=== PATIENT | female | born 1970 | race Caucasian/White ===

== ENCOUNTER 2019-05-28 08:52 | Day surgery (SDC) | payer OTHER, SELFPAY ==
--- NOTE | 2019-05-27 15:34 | PCM.HP.BLA ---
History and Physical Date of Admission: 05/28/19 Pre-Op History and Physical ? HPI: The patient is a 48 year old female presenting for pre-operative visit. She is scheduled for?laparoscopic bilateral salpingectomy and hysteroscopy with endometrial ablation, for?sterilization and menorrhagia on?05/28/19. ??Procedure discussed along with risks, benefits and complications. ?Other alternatives discussed for management. Consent form signed??Yes.? PAST?MEDICAL?HISTORY PAST MEDICAL HISTORY Diagnosis Date ? Amenorrhea ? ? Dizziness ? ? Fatigue ? ? Heart murmur ? ? Mitral valve disorder ? ? Pain in left shoulder 05/09/2015 ? Pain in right elbow ? ? Palpitations ? ? PACs/PVCs on event recorder ? Pulmonary hypertension (HCC) ? ? Tricuspid valve regurgitation ? ? Ventricular premature beats ? ? ? PAST?SURGICAL?HISTORY PAST SURGICAL HISTORY Procedure Laterality Date ? BREAST SURGERY PROCEDURE UNLISTED ? ? ? Breast Lift ? ELBOW RIGHT OP SURGERY ? 07/2017 ? KNEE RIGHT OP SURGERY ? 05/2017 ? NOSE SURGERY HX ? YRS ? VT ANESTH,BLADDER STONE SURG ? ? ? Bladder sling ? REMOVE/GRAFT FOOT LESION ? ? ? Right Foot Bunyon ? REPAIR OF NASAL SEPTUM ? CURRENT?MEDICATIONS Current Outpatient Medications Medication Sig Dispense Refill ? norethindrone (AYGESTIN) 5 mg tablet Take 1 tablet TID until bleeding stops, the BID x 3 days, the daily x 3 days. 35 tablet 0 ? No current facility-administered medications for this visit.? ? ALLERGIES:?Patient has no known allergies. ? PERSONAL HISTORY:? SOCIAL?HISTORY Social History ??Socioeconomic History ?Marital status: ?Spouse name: Not on file ?Number of children: Not on file ?Years of education: Not on file ?Highest education level: Not on file ??Occupational History ?Occupation: HOUSEWIFE ??Social Needs ?Financial resource strain: Not on file ?Food insecurity: ?Worry: Not on file ?Inability: Not on file ?Transportation needs: ?Medical: Not on file ?Non-medical: Not on file ??Tobacco Use ?Smoking status: Never Smoker ?Smokeless tobacco: Never Used ?Tobacco comment: Never smoked; Tobacco reviewed with patient 06/29/2015 ??Substance and Sexual Activity ?Alcohol use: Yes ?Comment: glass of wine here and there ?Drug use: No ?Comment: No reported history ?Sexual activity: Yes ?Partners: Male ? control/protection: None ??Lifestyle ?Physical activity: ?Days per week: Not on file ?Minutes per session: Not on file ?Stress: Not on file ??Relationships ?Social connections: ?Talks on phone: Not on file ?Gets together: Not on file ?Attends muslim service: Not on file ?Active member of club or organization: Not on file ?Attends meetings of clubs or organizations: Not on file ?Relationship status: Not on file ?Intimate partner violence: ?Fear of current or ex partner: Not on file ?Emotionally abused: Not on file ?Physically abused: Not on file ?Forced sexual activity: Not on file ??Other Topics ?Concerns: ? Service: Not Asked ?Blood Transfusions: Not Asked ?Caffeine Concern: Yes ?Uses caffeine; Type: coffee; Amount: moderate (equiv to 1-3 8oz coffee/day) ?Occupational Exposure: Not Asked ?Hobby Hazards: Not Asked ?Sleep Concern: Not Asked ?Stress Concern: Not Asked ?Weight Concern: Not Asked ?Special Diet: Not Asked ?Back Care: Not Asked ?Exercise: Yes ?Daily ?Bike Helmet: Not Asked ?Seat Belt: Not Asked ?Self-Exams: Not Asked ??Social History Narrative ?Not on file ? FAMILY HISTORY:? FAMILY?HISTORY FAMILY HISTORY Problem Relation Age of Onset ? Arthritis Mother ? ? Hypertension Mother ? ? other (Depression) Mother ? ? Heart Father ? ? other (Hollister Palsy) Father ? ? Cancer Sister ? ? Coronary Artery Disease Other ?Aunt ? Hypertension Sister ? ? Breast Cancer Other ?Hlaf sister ? REVIEW OF SYMPTOMS: GENERAL: denies fevers or chills ENDOCRINOLOGY: has not been on steroids Cardiology : denies palpitations or chest pain Respiratory: denies SOB or cough Hematology: denies history of prolonged bleeding or easy bruising or VTE Allergy: Denies history of personal or family history of allergy to anesthesia ? ? PHYSICAL EXAMINATION: ? VITALS:?There were no vitals taken for this visit. ? GENERAL:??The patient is well nourished, well hydrated in no acute distress. ?, The patient is oriented to time, place, and person. NECK:?Supple. No lynphadenopathy, normal thyroid, no thyromegaly. LUNGS:?Clear to auscultation bilaterally. no wheezes, rhonchi or rales HEART:?Regular rate and rhythm, Normal heart sounds and No murmurs or gallops ? ? IMPRESSION:?menorrhagia, sterilization request ? PLAN:???The risks/benefits/alternatives and personal involved for the planned?laparoscopic bilateral salpingectomy and hysteroscopy with endometrial ablation?were reviewed with the patient. Her questions were answered to her satisfaction and she desires to proceed. ?Consent was signed. ?I reviewed with her postop instructions and expectations. This h&P was completed in my office on 05/26/19 ?
[2019-05-28] VITALS (8 sets, daily range): BP systolic 103–129; BP diastolic 55–83; PULSE 46–62; RESP 16; TEMP 36.1–37; O2SAT 99–100; BMI 24.7
--- NOTE | 2019-05-28 09:14 | EKG12_ITS ---
Test Reason : PRE-OP Blood Pressure : / mmHG Vent. Rate : 059 BPM Atrial Rate : 059 BPM P-R Int : 160 ms QRS Dur : 096 ms QT Int : 406 ms P-R-T Axes : 058 -22 030 degrees QTc Int : 401 ms Sinus bradycardia with Premature atrial complexes Otherwise normal ECG Confirmed by MISTI KAHN, GILBERTO ([id number]), restaurant expeditor AUDREY PEREA ([id number]) on 06/02/2019 9:08:07 AM Referred By: Ani Ojeda Confirmed By:GILBERTO CHAPPELL MD
[2019-05-28 09:27] LABS: Hematocrit 40.2 % (37-47); Hemoglobin 13.7 g/dL (12.0-15.0); Mean Corp Hgb Conc 34.1 g/dL (32-36); Mean Corpuscular Hgb 31.1 pg (27.0-32.0); Mean Corpuscular Volume 91.4 fL (81-99); Mean Platelet Vol. 9.5 fl (6.2-12.0); Platelet Count 218 K/mm3 (150-450); RBC Distribution Width CV 11.8 % (11.6-14.6); RBC Distribution Width SD 39.9 fl (35.1-43.9); White Blood Count 4.5 K/mm3 (4.4-11.0)
[2019-05-28 09:29] LABS: Internal QC Validated? YES +Cl - CLEAR BKGD; Pregnancy, Urine Negative Negative
[2019-05-28] MEDS: Lactated Ringers 1,000 ML 100 ML IV (09:30)
[2019-05-28] MEDS: Gabapentin 300 MG Capsule PO (09:35)
[2019-05-28] MEDS: Celecoxib 200 MG Capsule 400 MG PO (09:35)
[2019-05-28] MEDS: Acetaminophen 500 MG Tablet 1000 MG PO (09:35)
[2019-05-28 09:44] LABS: Anion Gap 7 (5-15); BUN 10 mg/dL (7-18); Calcium,Total 8.9 mg/dL (8.5-10.1); Chloride 106 mmol/L (98-107); Creatinine, Serum 0.77 mg/dL (0.55-1.02); EST Glomerular Filtration Rate 85 mL/min (>60); Est Glom Filt Rate - Afr Amer 103 mL/min (>60); Estimated Creatinine Clearance 81.27 ml/min; Glucose 88 mg/dL (74-106); Potassium 3.7 mmol/L (3.5-5.1); Sodium Level 140 mmol/L (136-145)
--- NOTE | 2019-05-28 10:35 | FALS_PTH ---
PATIENT: RJ DUVAL LOC: [facility] [place] U#:[id number] AGE/SX: 49/F ROOM: RE05/28/[address]: Dr. Ani Ojeda MD : 1970 BED: DIS: 05/28/2019 SPEC #: [id number] RECD: 05/28/19 13:00 STATUS: ROBERT DEEPAK #: [id number] VICKEY: 05/28/19 10:[address]: Ani Ojeda DEPT: SURGICAL PATHOLOGY RECD BY: Evelio Unger ENTERED: 05/28/19 13:30 SP TYPE: FALL TUBES OTHR DR: Alicja Woods, ACCESS REGISTRAR-C Tissues: Fallopian tube Procedures: Surgery Specimen Level II HEADER OPERATION: Laparoscopic salpingectomy PRE-OP DIAGNOSIS: Menorrhagia, sterilization request TISSUE SUBMITTED: Bilateral fallopian tubes MICROSCOPIC DIAGNOSIS Bilateral fallopian tubes, salpingectomy: Bilateral fallopian tubes including fimbrial ends, no pathologic diagnosis. SJ:coretta 05/29/19 MICROSCOPIC DESCRIPTION Slides are reviewed. GROSS DESCRIPTION Received is one container labeled with the patient's name and designated bilateral fallopian tubes. The specimen consists of two fallopian tubes with an average length of 6 cm and has a maximal diameter of 0.6 cm. Both fallopian tubes have normal fimbriated ends. No mass lesions are identified. Beef Lugger sections from both fallopian tubes are submitted separately in two cassettes as follows: 1 - one fallopian tube, 2 - the other fallopian tube. / AM:coretta 05/28/19 TC:4 CPT: 13589 x2
--- NOTE | 2019-05-28 11:38 | DCINST_ITS ---
Discharge Diet: No Restrictions - Increase fluid intake for the next 48 hours. Discharge Activity: Return to Normal Activity, May Drive - when you are no longer taking pain/narcotic meds., May Shower, May Take a Tub Bath - in 7 days Return to work on:: 06/01/19 May shower in (days): 1 May resume sexual activity in: 2 weeks Additional Activity Instructions:: Ambulate often the next week after surgery. Nothing in the vagina for 5 days. Call your doctor if your incision/area has: Continuous Slow Oozing, Sudden Increased Bleeding, Increased Pain/ Swelling, Increased Redness, Foul Smelling Discharge Call your doctor if you observe: Fever of 101 or Higher, Using more than one pad per hour - for 2 hrs in a row Cleanse incision/area with: Soap & Water Allergies/Adverse Reactions: Allergies No Known Allergies Allergy (Verified 05/28/19 09:21) Primary Care Physician: Alicja Woods NP-C [Primary Care Provider] - Test Results: Test results from this visit will be discussed in further detail at your follow- up appointment, if applicable. Please Follow Up With: Ani Ojeda MD - [phone] When: 2-4 weeks or as needed
[2019-05-28] MEDS: Bupivacaine Mpf 0.5% 30 ML VIAL (12:00)
--- NOTE | 2019-05-28 12:19 | PCM.OPRPT ---
Report of Operation Date of Procedure: 05/28/19 Pre-Operative Diagnosis: sterilization request, menorrhagia Post-Operative Diagnosis: same + endometriosis Surgery/Procedure Performed:: Laparoscopic bilateral salpingectomy, hysteroscopy with Disha endometrial ablation Description of Surgical Findings:: Normal-appearing uterus tubes and ovaries bilaterally, some powder burn and white lesions of the posterior cul-de-sac, especially over the uterosacral ligaments. No lesions were noted elsewhere. No endometriomas of the ovaries. Normal-appearing endometrial cavity with ragged endometrium, cervix and vagina novelty printing machine operator: Tanisha Morrison Type of Anesthesia:: General Anesthesiologist: Poli Chu Special Medications: none Specimen's removed: bilateral fallopian tubes Drains: none Estimated Blood Loss (mL): 20 Fluids Replaced: 900 Description of Procedure: The patient was taken to the operating room where she was prepped and draped in the dorsolithotomy position. A weighted speculum was placed in the vagina and the anterior lip of the cervix was grasped with a tenaculum. The Kelli uterine manipulator was placed and the remainder of the instruments were removed from the vagina. Attention was turned to the abdomen. All port sites were infiltrated with 0.5% Marcaine before skin incisions were made. A 5 mm intraumbilical incision was made. The anterior abdominal wall was tented up with 2 towel clamps while a 5 mm blade less trocar and sleeve were directly inserted. Intraperitoneal placement was confirmed with the laparoscope. The pneumoperitoneum was created and the underlying abdominal contents were intact. The patient was placed in Trendelenburg. Right and left lower quadrant ports were placed under direct visualization lateral to the inferior epigastric vessels. The bowel was swept away and the above findings were noted. The LigaSure device was used to clamp seal and transect the antimesenteric portions of the right tube to the cornual insertion of the uterus. The tube was amputated from the uterus and the pedicles were all confirmed to be hemostatic. The same procedure was performed on the contralateral side. The specimens were brought out through a 5 mm port. The pedicles were again examined and found to be hemostatic. The lateral ports were removed under direct visualization and no active bleeding was noted. The pneumoperitoneum was released. The skin incisions were closed with Monocryl suture in a subcuticular fashion and skin glue. Tension was then turned to the vaginal portion of the case. The cervix was dilated serially with Hegar dilators. The 5mm hysteroscope was placed into the uterine cavity and the above findings were noted. Bilateral tubal ostia were identified. The uterus sounded to 9 cm and the cervical length was 4 cm. The endometrial cavity length was 5 cm. The hysteroscope was removed. The Disha device was set to 5 cm. The instrument was then seated into the endometrial cavity and the indicator was in the green. The cervical seal balloon was inflated and the uterine integrity test was passed. The ablation procedure was initiated and completed without interruption. During the ablation procedure gentle traction was held on the tenaculum and the Disha device was held up against the uterine fundus. When the ablation procedure was completed the Disha was removed. The tenaculum was removed and the tenaculum site was noted to be hemostatic. All sponge and needle counts were correct. A vaginal sweep was performed by me. The patient was awakened and taken to the recovery room in stable condition. Hysteroscopic ins: 200cc normal saline Hysteroscopic outs:150cc Findings: Endometrial cavity: Normal, no fibroids or polyps noted Cervix: Normal Vagina: Normal Grafts/Implants Used: none - Complications none - Admit VTE Documentation VTE Present on Admission: No VTE Mechan Device Prophylaxis: SCD's VTE Pharm Prophylaxis ordered?: No Reason prophylaxis not ordered:: Procedure Not Indicated
[2019-05-28] MEDS: Lactated Ringers 1,000 ML 75 ML IV (12:35)
== END 2019-05-28 15:30 | disposition home or self-care (01) ==
LOC: SDC 08:59 → AC 09:02
PROVIDERS: Anesthesiology; Family Provider Nurse Practitioner Adult Health; PCP Nurse Practitioner Adult Health; Referring Provider Obstetrics & Gynecology; Visit Provider Obstetrics & Gynecology
PROC: (CPT 58661; principal; 2019-05-28 10:20)
PROC: 0U5B8ZZ Destruction of Endometrium, Via Natural or Artificial Opening Endoscopic (ICD-10-PCS; CPT 58558; 2019-05-28 10:20)
DX: N92.0 Excessive and frequent menstruation with regular cycle (principal); Z30.2 Encounter for sterilization
CPT/HCPCS: 58563; 58661; 36415; 80048; 81025; 85027; 88302; 93005; J7120; J2405

== ENCOUNTER → 2020-10-03 15:09 | Outpatient (CLI) | payer OTHER, SELFPAY ==
[2019-05-28 09:21] VITALS: BMI 24.7
[2020-10-03 18:25] LABS: Absolute Neutrophil Count 4.1 X10^3/uL (2.0-7.7); Basophil# 0.01 X10^3/uL; Basophil% 0.2 % (0-1); Eosinophil# 0.03 X10^3/uL; Eosinophils% 0.5 % (0-5); Hematocrit 40.6 % (37-47); Hemoglobin 13.7 g/dL (12.0-15.0); Lymphocyte % 22.9 % (19-41); Mean Corp Hgb Conc 33.7 g/dL (32-36); Mean Corpuscular Hgb 31.1 pg (27.0-32.0); Mean Corpuscular Volume 92.1 fL (81-99); Mean Platelet Vol. 10.6 fl (6.2-12.0); Monocyte# 0.57 X10^3/uL; Monocyte% 9.3 % (0-10); NRBC Flagged by Analyzer 0 % (0-5); Neutrophil % 66.9 % (47-70); Platelet Count 216 K/mm3 (150-450); RBC Distribution Width CV 11.8 % (11.6-14.6); RBC Distribution Width SD 40.2 fl (35.1-43.9); Red Blood Count 4.41 M/mm3 (4.2-5.4); White Blood Count 6.1 K/mm3 (4.4-11.0)
[2020-10-03 18:47] LABS: ALB/GLOB Ratio 1.2 RATIO (0.9-2.4); AST(SGOT) 18 U/L (15-37); Alanine Aminotransfer ALT/SGPT 23 U/L (13-56); Albumin, Serum 4.1 g/dL (3.2-5.0); Alkaline Phosphatase 53 U/L (45-117); Anion Gap 3 (5-15); BUN 14 mg/dL (7-18); BUN/Creat Ratio 19.2 RATIO (10-20); Chloride 106 mmol/L (98-107); Creatinine, Serum 0.73 mg/dL (0.55-1.02); EST Glomerular Filtration Rate 90 mL/min (>60); Est Glom Filt Rate - Afr Amer 109 mL/min (>60); Globulin 3.3 g/dL (2.2-4.2); Glucose 83 mg/dL (74-106); Protein, Total 7.4 g/dL (6.4-8.2); Sodium Level 140 mmol/L (136-145)
== END ==
PROVIDERS: PCP Nurse Practitioner Adult Health; Visit Provider Family Medicine
DX: Z01.818 Encounter for other preprocedural examination (principal)
CPT/HCPCS: 36415; 80053; 85025

== ENCOUNTER 2020-10-14 07:56 | Day surgery (SDC) | payer OTHER, SELFPAY ==
[2019-05-28 09:21] VITALS: BMI 24.7
[2020-10-14] VITALS (7 sets, daily range): BP systolic 125–147; BP diastolic 75–95; PULSE 58–74; RESP 16–18; TEMP 36.3–37.2; O2SAT 98–100; BMI 24.8
[2020-10-14] MEDS: Lactated Ringers 1,000 ML 100 ML IV ×3 (08:37→13:22)
--- NOTE | 2020-10-14 09:30 | RAD_ITS ---
STUDY: X-RAY - LEFT FOOT CLINICAL: Female, 50 years old. 1ST METATARSAL CUNEIFORM LAPIDUS ARTHRODESIS BUNIONECTOMY TECHNIQUE: 2 view(s) of the foot. COMPARISON: None. FINDINGS: 1:38 minutes of fluoroscopy of the left foot was utilized and operating room during arthrodesis and 4 images are submitted for interpretation.. RAD/Foot 2 Views IMPRESSION: Fluoroscopy during surgery. Electronically Signed: Ezequiel Lennon MD at 15:25 EDT Tel , Service support ,
--- NOTE | 2020-10-14 09:30 | BUN_PTH ---
PATIENT: RJ DUVAL LOC: [facility] [place] U#:[id number] AGE/SX: 50/F ROOM: RE10/14/[address]: Dr. Markel Sim DPM : 1970 BED: DIS: 10/14/2020 SPEC #: [id number] RECD: 10/14/20 13:59 STATUS: ROBERT RESj #: [id number] VICKEY: 10/14/20 09:[address]: Markel Sim DEPT: SURGICAL PATHOLOGY RECD BY: Angelica Tan ENTERED: 10/17/20 07:55 SP TYPE: BUNION OTHR DR: HEATHER Garrison Tissues: Bony tissue, NOS Procedures: Decalcification bone/plaque Surgery Specimen Level III HEADER OPERATION: Left foot first metatarsal cuneiform lapidus arthrodesis bunion PRE-OP DIAGNOSIS: Hallux valgus bunion TISSUE SUBMITTED: Bunion left foot MICROSCOPIC DIAGNOSIS Bunion left foot: Pieces of bone with reactive changes, clinically hallux valgus bunion. SJ:coretta 10/20/2020 MICROSCOPIC DESCRIPTION Slides are reviewed. GROSS DESCRIPTION Received in fixative is one container labeled with the patient's name and designated bunion left foot. The specimen consists of multiple irregular fragments of light rubio bone that in aggregate measure 4 x 2.5 x 0.2 cm. The specimen is totally submitted in one cassette after decalcification. / AM:coretta 10/17/20 TC:5 CPT: 83851, 72313
[2020-10-14] MEDS: Cefazolin 2 GM in 0.9% Normal Saline 100 ML IV (10:27)
[2020-10-14] MEDS: Bupivacaine Mpf 0.5% 30 ML VIAL (10:37)
--- NOTE | 2020-10-14 13:01 | PCM.DC.POD ---
Discharge Diet: Light diet - advance as tolerated Discharge Activity: May not drive while taking narcotic pain medications. Weight Bearing Status: No weight bearing - No weightbearing left foot Keep extremity elevated above heart level: Left Leg - Keep left foot elevated with pillows for at least 50 minutes of every hour Call your doctor if your incision/area has: Continuous Slow Oozing, Sudden Increased Bleeding, Foul Smelling Discharge Call your doctor if you observe: Fever of 101 or Higher, Shortness of breath, Chest pain, Calf discomfort, Uncontrolled pain Cleanse incision/area with: Do not get Incision Wet, Keep Dressing Clean & Dry Allergies/Adverse Reactions: Allergies No Known Allergies Allergy (Verified 10/14/20 08:09) Medications to take at Discharge Amoxicillin/Potassium Clav [Augmentin 500-125 Tablet] 1 each PO Q12H #14 tablet 10/14/20 Ibuprofen 400 mg PO Q6H PRN PRN #40 tablet 10/14/20 Oxycodone [Oxyir] 5 - 10 mg PO Q6H PRN PRN 4 Days #30 tab 10/14/20 The following prescriptions were given: Amoxicillin/Potassium Clav [Augmentin 500-125 Tablet] 1 each PO Q12H #14 tablet Prescription Printed Ibuprofen 400 mg PO Q6H PRN PRN #40 tablet PRN Reason: Pain Score 1-10 Prescription Printed Oxycodone [Oxyir] 5 - 10 mg PO Q6H PRN PRN 4 Days #30 tab PRN Reason: Pain Score 4-10 Prescription Printed Primary Care Physician: Alicja Wodos HANDBELL CHOIR DIRECTOR, HANDBELL CHOIR DIRECTOR-C [Primary Care Provider] - Test Results: Test results from this visit will be discussed in further detail at your follow-up appointment, if applicable. Please Follow Up With: Markel Sim DPM - Call Dr. Sim if needed: office: [phone], hospital: [phone], cell: [phone] When: 1 week, sooner if needed
--- NOTE | 2020-10-14 13:03 | OP.PCM_ITS ---
Report of Operation Date of Procedure: 10/14/20 Pre-Operative Diagnosis: Hallux valgus bunion left foot Post-Operative Diagnosis: Hallux valgus bunion left foot. 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 Ely Galvez Type of Anesthesia:: General, Local Specimen's removed: Bunion from left foot sent to pathology Description of Procedure: Indications: This is a 50 year old female with chronic left hallux valgus bunion pain despite nonsurgical treatment. She has difficulty with activities due to the pain. Patient has clinical hallux valgus bunion with 1st ray hypermobility. We discussed the condition and treatment options. From surgical standpoint we discussed 1st tarsometatarsal lapidus arthrodesis bunionectomy. Reviewed the procedures, possible benefits vs risks, goals, expectations, and estimated healing time. Generally speaking advised that post operatively he will need to be nonweightbearing for at least 4 weeks, then next 4 weeks in a walking immobilizing boot, possibly longer, advised it may take 12 months or more for complete healing. She was asked and she did not relate to any personal or family history of blood clots or clotting disorders. She expressed understanding and agreement. No guarantees were given nor implied. No warranties were given. Patient freely signed the consent forms and elected to proceed forward with the procedure. Operative procedure: The patient was brought back into the operating room and was placed on the operating room table in the supine position. Patient was carefully secured to the operating room table with a safety belt around patient's waist. A timeout was performed and the patient was properly identified and the surgical plan was confirmed. The patient did received 2g of intravenous Cefazolin for antibiotic prophylaxis. The patient received general anesthesia per the anesthesia team. A well padded pneumatic tourniquet was applied around the left ankle. The left foot was scrubbed, prepped and draped in the usual aseptic fashion. Further attention was directed to the left foot. There was noted to be hallux valgus bunion with 1st toe deviated right into the 2nd toe, the hallux was laterally deviated, there was hypermobility of the 1st ray. A total of 20mL of 0.5% Bupivacaine plain was given as a local nerve block around the 1st ray on the left foot. Left 1st tarsometatarsal Lapidus arthrodesis bunionectomy: The left foot was elevated and exsanguinated using an Esmarch bandage, and the left ankle pneumatic tourniquet was inflated to 250mmHg. A linear longitudinal skin incision was medially along the medial 1st metatarsal cuneiform joint, as well as overlying the 1st metatarsal phalangeal joint. This was done using a 15 blade. Careful dissection was completed down to the capsule of the 1st metatarsal cuneiform joint, as well as the 1st metatarsal phalangeal joint; and was incised using a 15 blade and partially reflected exposing the joint surfaces. The tibialis anterior tendon was kept intact on the 1st cuneiform. It was noted there was significant synovitis to the 1st metatarsal phalangeal joint and there was noted to be wearing away of the dorsal cartilage on the 1st metatarsal head with some osteophytes and medial eminence bunion present on the 1st metatarsal head with limited range of motion of the hallux dorsally at the level of the 1st metatarsal phalangeal joint. All cartilage from the 1st metatarsal cuneiform joint surfaces (posterior aspect of the base of the 1st metatarsal and the anterior aspect of the 1st cuneiform) were debrided away and was removed down to bleeding bone. This was done with a curette as well as a powered sagittal saw and rasp and saw, being sure not to cause osteonecrosis. The site was flushed out with copious amounts of normal saline solution. The surfaces were fenestrated using a powered drill to aid fus ion, and also an osteotome and mallet. The 1st metatarsal was reduced into normal position using a tenaculum from the 1st and 2nd metatarsals distally. The site was fixated use rigid open reduction internal fixation, using 1 Arthrex cannulated 3.5mm FT compression screws as well as 1 Arthrex plantar plate, using a total of 4 cortical/locking screws, and 1 cortical screw across the fusion site. There was very good compression and bone to bone contact with the prepped fusion site, in good alignment. The fusion site was rigid and very stable. This was checked and confirmed with intraoperative fluoroscopy. There was noted to be some mild intercuneiform instability and an additional 3.5mm FT compression screw was placed across the 1st and 2nd cuneiforms for intercuneiform stability. This was all done using rigid open reduction internal fixation technique. There was excellent stability present. There was also noted to be some residual lateral deviation contracture of the lateral 1st metatarsal phalangeal joint as well as very tight and contracted the adductor hallucis tendon which was causing continued lateral deviation of the 1st toe into the 2nd toe. Therefore a skin incision was overlying the dorsal lateral 1st metatarsal phalangeal joint. Dissection was completed down to the lateral capsule of the 1st MTPJ and adductor hallucis tendon which were released using a 15 blade. The hallux was now in rectus and excellent position. The dorsal 1/3 of the 1st metatarsal head was resected removing the nonviable significantly worn cartilage and osteophytes in this process. This was done using a sagittal saw and powered rasp. The medial eminence was smoothed down using a sagittal saw as well as a powered rasp. There was was now normal range of motion to the 1st metatarsal phalangeal joint. There was smooth normal gliding range of motion of the 1st metatarsal phalangeal joint at this time with normal alignment. The joint was in good alignment. There was 90 degress of 1st metatarsal phalangeal joint dorsiflexion, there was no popping, clicking, or crepitus noted. The 1st ray was very stable in good position. The bunion was resolved. This was confirmed with intraoperative fluo roscopy, images were saved. The surgical site was flushed out with copious amounts of normal saline solution. Tissues were healthy and viable at this time. The subcutaneous tissue layers were reapproximated using 3-0 Vicryl and the skin was reapproximated using 4-0 Monocryl. Cavailon was painted to the edges of the sutured skin incision and steristrips were applied across the sutured skin incision. An additional 10 mL of 0.5% Bupivacaine plain was given as a local nerve block around the 1st ray. The pneumatic tourniquet was deflated after 110 minutes, and was deflated prior to closure, there was immediate return of warmth and perfusion to the foot, including to all 5 toes. CFT < 2 seconds to all toes. There was hemostasis achieved prior to incision closure. A dressing was applied which consisted of betadine soaked adaptic, 4x4 gauze, Kerlix and michelle bandage. Of note all vital structures, including all vital neurovascular structures were properly identified, they were protected and retracted as necessary throughout the above procedures. The patient tolerated the above procedure well and the anesthesia well with no complications. The patient was transported from the operating room to the recovery room with vital signs stable and in good condition. Post operative orders were placed, post operative xrays were obtained in the recovery room which confirmed 1st tarsometatarsal lapidus bunionectomy in good position, hardware intact, no evidence of complication. Post operative instructions were reviewed with her and her who was with her today. No weightbearing left foot, keep left foot elevated for at least 50 minutes an hour, keep dressing clean, dry and intact. Prescriptions for oxycodone 5mg tabs, 1-2 tabs PO q 6 hours prn pain, and ibuprofen 400mg PO q 6 hours prn pain. OARRS was checked. Follow up in 1 week, sooner if needed. Grafts/Implants Used: 1 Arthrex plantar lapidus plate and screws - Complications None
--- NOTE | 2020-10-14 13:23 | RAD_ITS ---
STUDY: X-RAY - LEFT FOOT CLINICAL: Female, 50 years old. post op TECHNIQUE: 3 view(s) of the foot. COMPARISON: None. FINDINGS: Normal talus, calcaneus, and tarsal bones. Status post first tarsometatarsal joint arthrodesis with a plantar plate and screws. Normal metatarsi. Normal metatarsophalangeal joint of the great toe. Normal tibial and fibular sesamoid bones. Normal interphalangeal joint of the great toe. Normal phalanges of the great toe. Normal second through fifth metatarsophalangeal joints. Normal interphalangeal joints and phalanges of the lesser toes. The soft tissue structures are unremarkable. RAD/Foot min 3 Views IMPRESSION: Status post first tarsometatarsal joint arthrodesis. Electronically Signed: Ezequiel Lennon MD at 15:27 EDT Tel , Service support ,
[2020-10-14 16:47] LABS: HIV - WCH Non-Reactive (Nonreactive); Hepatitis B Surface Antibody Non-Reactive; Hepatitis B Surface Antigen Non-Reactive (Nonreactive); Hepatitis C Antibody Non-Reactive (Nonreactive)
[2020-10-17 10:55] LABS: Hepatitis B Core Ab Total Negative (Negative)
== END 2020-10-14 17:00 | disposition home or self-care (01) ==
LOC: SDC 07:56 → AC 07:56
PROVIDERS: PCP Nurse Practitioner Adult Health; Referring Provider Podiatrist; Visit Provider Podiatrist
PROC: (CPT 28292; principal; 2020-10-14 09:15)
DX: M20.12 Hallux valgus (acquired), left foot (principal); M21.612 Bunion of left foot; Z20.822 Contact with and (suspected) exposure to COVID-19
CPT/HCPCS: 28297; 73620; 73630; 76000; 86703; 86704; 86706; 86803; 87340; 87426; 88304; 88305; 88311; C1713; C9803; J7120; J2405